=== PATIENT | male | born 1995 | race Caucasian/White ===

== ENCOUNTER 2018-03-31 21:31 | Emergency (ER) | payer OTHER ==
[~2018-03-31] VITALS: Ht 170.2 cm; Wt 68.0 kg
[~2018-03-31 21:31] MED LIST: BACITRAYCIN PLU28 GM TOP; CLIN150 PO; Monodox100 MG PO; PENVK500 PO; SULTRIDS PO
[2018-04-01] MEDS ORDERED: Doxycycline Hy100 MG PO (01:51)
== END 2018-04-01 02:15 | disposition home or self-care (01) ==
LOC: ER 21:31
DX: L02.512 Cutaneous abscess of left hand (principal); L03.114 Cellulitis of left upper limb; H60.11 Cellulitis of right external ear; F17.210 Nicotine dependence, cigarettes, uncomplicated
CPT/HCPCS: 10060; 99283-25

== ENCOUNTER 2022-10-07 14:34 | Emergency (ER) | payer OTHER ==
[~2022-10-07] VITALS: Ht 170.2 cm; Wt 90.7 kg
[~2022-10-07 14:34] MED LIST changes: +Doxycycline Hy100 MG PO
== END 2022-10-07 16:05 | disposition home or self-care (01) ==
LOC: ER 14:34
DX: S01.81XA Laceration without foreign body of other part of head, initial encounter (principal); W22.8XXA Striking against or struck by other objects, initial encounter; F17.210 Nicotine dependence, cigarettes, uncomplicated; Z23 Encounter for immunization
CPT/HCPCS: 90714

== ENCOUNTER 2022-10-21 13:02 | Emergency (ER) | payer OTHER ==
[~2022-10-21] VITALS: Ht 170.2 cm; Wt 90.7 kg
== END 2022-10-21 13:16 | disposition home or self-care (01) ==
LOC: ER 13:02
DX: Z48.02 Encounter for removal of sutures (principal); F17.210 Nicotine dependence, cigarettes, uncomplicated
CPT/HCPCS: 99281